=== PATIENT | female | born 1945 | race Hispanic/Latino ===

== ENCOUNTER 2024-12-13 16:54 | Emergency (ER) | payer MEDICARE, OTHER ==
[~2024-12-13] VITALS: Ht 152.4 cm; Wt 59.4 kg
[~2024-12-13 16:54] MED LIST: FOLI0.8T22 PO
--- NOTE | 2024-12-13 17:05 | ERN ---
ED Note History of Present Illness Stated Complaint: ABDOMINAL PAIN THAT RADIATES TO THE BACK Chief Complaint: Abdominal Pain Time Seen by MD: 16:57 Dictation: PATIENT IS AN 79-YEAR-OLD FEMALE COMING IN TODAY WITH COMPLAINTS OF ACUTE ONSET OF EPIGASTRIC SUBSTERNAL CHEST PAIN WITH PAIN THAT RADIATES TO HER UPPER BACK ONSET THIS MORNING AT 10:00. SHE HAS HAD NAUSEA VOMITING SINCE. SHE DENIES JAW PAIN ARM PAIN NO NECK PAIN. SHE DENIES ANY PAST MEDICAL HISTORY OTHER THAN GASTRITIS. SHE STATES SHE HAS BEEN BELCHING SINCE THE ONSET OF THE SYMPTOMS. Allergies: Coded Allergies: Penicillins (Verified Allergy, Unknown, 06/03/18) Home Meds Reported Medications Folic Acid/Vitamin B Comp W-C (Chitra-Jarred Tablet) 0.8 Mg Tablet, 1 TAB PO DAILY 08/21/22 Past Medical History Past Medical History: Arthritis, Hypertension, UTI, Other Additional Past Medical Hx: BLADDER ISSUES, KIDNEY DISEASE Surgical History: None Social History: Smokers, Lives with family History: Not Applicable RN Note Reviewed/Agreed w/PFSH: Yes Review of System Dictation CONSTITUTIONAL: NEGATIVE EXCEPT FOR HPI HEAD/FACE: NEGATIVE EXCEPT FOR HPI EENT: NEGATIVE EXCEPT FOR HPI RESPIRATORY: NEGATIVE EXCEPT FOR HPI GASTROINTESTINAL/ABDOMINAL: NEGATIVE EXCEPT FOR HPI EPIGASTRIC PAIN THAT RADIATES TO THORACIC BACK WITH NAUSEA VOMITING GENITOURINARY: NEGATIVE EXCEPT FOR HPI MUSCULOSKELETAL: NEGATIVE EXCEPT FOR HPI INTEGUMENTARY: NEGATIVE EXCEPT FOR HPI NEUROLOGICAL/PSYCH: NEGATIVE EXCEPT FOR HPI HEMATOLOGIC/LYMPHATIC: NEGATIVE EXCEPT FOR HPI ALL SYSTEMS NEGATIVE, EXCEPT NOTED ABOVE. 13 POINT REVIEW OF SYSTEMS ASSESSED AND ALL NEGATIVE EXCEPT FOR ABOVE. Initial Vital Sign VS Vital Signs Date Time Temp Pulse Resp B/P (MAP) Pulse Ox O2 Delivery O2 Flow Rate FiO2 12/13/24 16:56 98.8 60 18 136/116 97 Room Air 12/13/24 18:00 0 21 Physical Exam Dictation VITAL SIGNS REVIEWED GENERAL APPEARANCE: ALERT, ORIENTED X 3, MODERATE ACUTE DISTRESS, WELL DEVELOPED, NOURISHED. HEAD AND FACE: NON-TRAUMATIC. EYES: PERRL, PINK CONJUNCTIVAS, EYELID NO TRAUMA, ANTERIOR CHAMBER WITH ARCUS SENILIS. EARS: PINNAS INTACT AND NO SIGNS OF TRAUMA OR ERYTHEMA EAR CANALS CLEAR AND NO DISCHARGE TM NO ERYTHEMA NOSE: NO DISCHARGE, NO BLEEDING. OROPHARYNX: MOUTH NORMAL, TONGUE PINK, PHARYNX CLEAR,NO ERYTHEMA, TONSILS NO EXUDATES, NO ABSCESSES NOTED, MUCOUS MEMBRANE MOIST NECK: SUPPLE, NON-TENDER, NO THYROMEGALY, NO MASSES, NO JVD, NO BRUITS BREAST:DEFERRED CHEST:NO TENDERNESS, NO CREPITUS, NO PARADOXICAL MOVEMENT, NO RETRACTIONS LUNGS:CLEAR, WELL-VENTILATED, SYMMETRIC, NO RALES, NO WHEEZING, NO RHONCHI, NO STRIDOR, GOOD BREATH SOUNDS BILATERALLY HEART: REGULAR RATE, REGULAR RHYTHM, NO MURMUR, NO GALLOPS VASCULAR: NO PERIPHERAL EDEMA, ABDOMEN: SOFT, POSITIVE BOWEL SOUNDS, NONDISTENDED, NO GUARDING, MODERATE EPIGASTRIC TENDERNESS WITH PALPATION. NEGATIVE PEREYRA'S NEGATIVE MCB URNEY'S POINT PAIN NO CVAT RECTAL: DEFERRED GENITAL: DEFERRED NEUROLOGICAL: NORMAL SPEECH, MOTOR FUNCTION INTACT, SENSORY FUNCTION INTACT MUSCULOSKELETAL: NECK NONTENDER, FULL RANGE OF MOTION, BACK NONTENDER, FULL RANGE OF MOTION, EXTREMITIES: NONTENDER, FULL RANGE OF MOTION SKIN: COLOR PINK, DRY, NO TURGOR, NO RASH, NO LACERATIONS, NO ABRASIONS, NO CONTUSIONS. LYMPHATIC: DEFERRED Results (Laboratory/Radiology) Laboratory/Radiology Laboratory Tests Test 12/13/24 17:16 White Blood Count 7.3 K/uL (4.8-10.8) Red Blood Count 4.38 MIL/uL (4.00-5.50) Hemoglobin 14.0 g/dL (12.0-16.0) Hematocrit 43.7 % (36-48) Mean Corpuscular Volume 99.8 fL (79-99) H Mean Corpuscular Hemoglobin 32.0 pg (27.0-33.0) Mean Corpuscular Hemoglobin Concent 32.0 g/dL (32.0-36.0) Red Cell Distribution Width 14.0 % (11.0-15.5) Platelet Count 250 K/uL (130-400) Mean Platelet Volume 9.5 fL (7.5-10.5) Immature Granulocyte % (Auto) 0.3 % (0-1) Neutrophils (%) (Auto) 85.5 % (40.0-77.0) H Lymphocytes (%) (Auto) 12.0 % (21.0-51.0) L Monocytes (%) (Auto) 1.8 % (3.0-13.0) L Eosinophils (%) (Auto) 0.1 % (0.0-8.0) Basophils (%) (Auto) 0.3 % (0.0-5.0) Neutrophils # (Auto) 6.3 K/uL (1.8-7.7) Lymphocytes # (Auto) 0.9 K/uL (1.0-4.8) L Monocytes # (Auto) 0.1 K/uL (0.1-1.0) Eosinophils # (Auto) 0.01 K/uL (0.00-0.70) Basophils # (Auto) 0.02 K/uL (0.00-0.20) Absolute Immature Granulocyte (auto 0.02 K/uL (0-1) Nucleated Red Blood Cells 0.0 % (0.0-0.19) Sodium Level 136 mmol/L (136-145) Potassium Level 3.9 mmol/L (3.5-5.1) Chloride Level 103 mmol/L (101-111) Carbon Dioxide Level 21 mmol/L (21-32) Blood Urea Nitrogen 33 mg/dL (7-18) H Creatinine 2.0 mg/dL (0.5-1.0) H Glomerular Filtration Rate Calc 25 mL/min (>90) Random Glucose 159 mg/dL (70-105) H Total Calcium 8.8 mg/dL (8.5-10.1) Troponin I High Sensitivity 11 ng/L (4-50) Lipase 23 U/L (16-77) Labs Reviewed?: Yes EKG: (+) NSR EKG Comment: EKG SINUS BRADYCARDIA/HEART RATE 59/AXIS NORMAL/NO ECTOPY ED Course ED Course Orders Procedure Category Date Status Time Cbc With Differential LAB 12/13/24 Complete 17:00 Troponin I High LAB 12/13/24 Complete Sensitivity 17:00 Urinalysis Profile LAB 12/13/24 Logged 17:00 12 Lead Ekg Tracing- EKG 12/13/24 Logged Technical 17:00 0.9%Nacl 1000ml (Ns PHA 12/13/24 Complete 1000ml) 17:00 Ondansetron 4mg Inj PHA 12/13/24 Complete (Zofran 4mg Inj) 17:00 Famotidine 20mg Vial PHA 12/13/24 Complete (Pepcid 20mg Vial) 17:00 Lipase LAB 12/13/24 Complete 17:00 Basic Metabolic Panel LAB 12/13/24 Complete 17:00 Morphine 4mg Syg PHA 12/13/24 Complete (Morphine 4mg Syg) 17:00 Lidocaine Hcl 2% PHA 12/13/24 Complete Viscous (Lidocaine Hcl 19:00 Mag/Alum/Simeth 30ml PHA 12/13/24 Complete (Maalox Plus 30ml) 19:00 Dicyclomine Hcl PHA 12/13/24 Complete (Bentyl 10mg/5ml 19:00 Hydralazine 20mg Inj PHA 12/13/24 Complete (Apresoline 20mg In 19:00 Current Medications Medications (Trade) Dose Ordered Sig/Braden Route PRN Reason Start Time Stop Time Status Last Admin Dose Admin Al Hydroxide/Mg Hydroxide (MAALox PLUS 30ML) 30 ml ONCE ONCE PO 12/13/24 19:00 12/13/24 19:01 DC 12/13/24 18:59 Dicyclomine HCl (Bentyl 10mg/5ml Syrup) 10 mg ONCE ONCE PO 12/13/24 19:00 12/13/24 19:01 DC 12/13/24 18:59 Famotidine (Pepcid 20mg Vial) 20 mg ONCE ONCE IV 12/13/24 17:00 12/13/24 17:10 DC 12/13/24 18:36 Hydralazine HCl (APRESOLine 20MG INJ) 10 mg ONCE ONCE IV 12/13/24 19:00 12/13/24 19:01 DC 12/13/24 18:59 Lidocaine HCl (Lidocaine HCl 2% Viscous) 10 ml ONCE ONCE PO 12/13/24 19:00 12/13/24 19:01 DC 12/13/24 18:59 Morphine Sulfate (morPHINE 4MG SYG) 2 mg ONCE ONCE IVP 12/13/24 17:00 12/13/24 17:10 DC 12/13/24 18:36 Ondansetron HCl (zoFRAN 4MG INJ) 4 mg ONCE ONCE IVP 12/13/24 17:00 12/13/24 17:10 DC 12/13/24 18:36 Sodium Chloride 1,000 ml @ 0 mls/hr ONCE ONCE IV 12/13/24 17:00 12/13/24 17:10 DC 12/13/24 18:36 Vital Signs Date Time Temp Pulse Resp B/P (MAP) Pulse Ox O2 Delivery O2 Flow Rate FiO2 12/13/24 19:31 98.8 65 16 129/59 98 Room Air* 0 21 12/13/24 18:59 60 187/83 12/13/24 18:00 98.8 60 16 197/80 95 Room Air* 0 21 12/13/24 16:56 98.8 60 18 136/116 97 Room Air 1935/patient states pain is now resolved after GI cocktail. Additionally she was hypertensive with a Blood pressure 187/83. She had not taken her medications this morning. She was given hydralazine 10 mg IV push repeat blood pressure 129/59 Medical Decision Making MDM MDM: Differential diagnosis: ACS/AMI/electrolyte imbalance/dehydration/GERD/ gastritis/uncontrolled hypertension Rationale: Tests considered and ordered secondary to shared decision making include: EKG/labs Previous outside records reviewed: Old ER visits. Risk of complication and/or morbidity or mortality of patient management: None Medications-Per medication reconciliation Need for hospitalization: Patient does not meet criteria for hospitalization. No Need for emergency major/minor surgery: No There are no social concerns with this patient. Prescription drug management Carafate/omeprazole Prescriptions will include symptomatic care Patient's prior external medical records from other ER visits were reviewed by me as indicated. Prior testing and results from previous visits were reviewed. Prior tests were taken into account with medical decision making and resource utilization, independent historian/historians were used to obtain complete medical history. I independently interpreted the test that were performed, results were reviewed by me and considered findings on radiology if ordered. Medical management and examination interpretation discussions were had by me with other qualified healthcare professionals as indicated for the patient's care. DX & DISP Disposition: Discharge Departure Impression: Primary Impression: Acute gastritis Additional Impressions: Stage 4 chronic kidney disease, Diabetes mellitus with hyperglycemia, Accelerated hypertension Condition: Stable Scripts Sucralfate (Carafate) 1 Gram Tablet 1 GM PO ACHS for 10 Days, #40 TAB Prov: AMADA GARCIA FIRER KILN 12/13/24 Omeprazole (Omeprazole) 40 Mg Capsule. 1 CAP PO DAILY for 30 Days, #30 CAP 0 Refills Prov: AMADA GARCIA FIRER KILN 12/13/24 Additional Instructions: Follow-up with primary care provider in 1 to 2 days. Take medications as directed here in the emergency room. Okay to continue home medications unless otherwise discussed during your visit in the emergency room today. Return to your nearest emergency room if symptoms worsen or if there is no improvement. Call 911 if you need immediate assistance. Take Tylenol or Motrin [id number] as needed and if no contraindications are present. Increase oral hydration. A wound culture or urine culture was ordered here in the emergency room department please follow-up with primary care provider and advise them to get repeat ports from our facility. If you had any Cameron wrap/splints that were applied here, please do not remove them until you see your primary care or specialty. Follow a bland diet with water for fluids only. Avoid spicy foods, no tomato juice, no citrus fruit juice, no alcohol, no tobacco, no busy drinks or sodas. No ice tea until cleared by your doctor in one or two days. Continue your high blood pressure medications at home from your doctor. Referrals: VITA ROSSI (PCP) Time of Disposition: 19:44 I have reviewed the case, and I agree with, Diagnosis and Plan AMADA GARCIA NP Dec 13, 2024 17:04
[2024-12-13 17:23] LABS: IMMATURE GRANULOCYTE ABSOLUTE 0.02 K/uL (0-1); NUCLEATED RED BLOOD CELLS 0.0 % (0.0-0.19); PLATELET COUNT (AUTO) 250 K/uL (130-400); RED BLOOD CELL COUNT(AUTO) 4.38 MIL/uL (4.00-5.50); RED CELL DISTRIBUTION WIDTH 14.0 % (11.0-15.5); WHITE BLOOD COUNT (AUTO) 7.3 K/uL (4.8-10.8)
[2024-12-13 17:34] LABS: CREATININE 2.0 mg/dL (0.5-1.0); GLOMERULAR FILTR. RATE CALC 25.0 mL/min (>90); GLUCOSE,RANDOM 159.0 mg/dL (70-105); SODIUM SERUM 136.0 mmol/L (136-145); UREA NITROGEN, BLOOD 33.0 mg/dL (7-18)
--- NOTE | 2024-12-13 18:16 | NUR ---
PATIENT CARE ASSUMED AT THIS TIME.
[2024-12-13] MEDS: FAMOTIDINE 20MG VIAL IV ONE (18:36)
[2024-12-13] MEDS: 0.9%NACL 1000ML 1,000 ML IV ONE (18:36)
[2024-12-13] MEDS: MAG/ALUM/SIMETH 30 ML UDCUP PO ONE (18:59)
[2024-12-13] MEDS: LIDOCAINE HCL 2% VISCOUS 15 ML UDCUP PO ONE (18:59)
[2024-12-13] MEDS: DICYCLOMINE HCL 10 MG/5 ML ML PO ONE (18:59)
[2024-12-13 19:31] VITALS: BP 129/59; PULSE 65; RESP 16; TEMP 98.8; O2SAT 98
[2024-12-13] MEDS ORDERED: SUCR1TAB28 PO (19:45)
[2024-12-13] MEDS ORDERED: OMEP40CA21 PO (19:45)
--- NOTE | 2024-12-13 23:35 | EKG ---
[facility] Test Date: 2024-12-13 Test Time: 16:59:43 Pat Name: JACQUELIN JEWELL Department: [facility] Room: Gender: F Grades 1 Through 5 Teacher: [id number] : 1945 Requested By: AMADA GARCIA Order Number: [id number] Reading MD: Joel Whyte Measurements Intervals [place] Rate: 59 P: 63 [place]: 199 QRS: 24 QRSD: 111 T: 44 QT: 483 QTc: 479 Interpretive Statements Sinus rhythm Low voltage, precordial leads Compared to ECG 08/21/2022 08:27:06 Atrial premature complex(es) no longer present Electronically Signed On 12-14-2024 21:30:21 CDT by Joel Whyte Please click the below link to view image of tracing.
== END 2024-12-13 20:02 | disposition home or self-care (01) ==
LOC: EDH 16:54
DX: K29.00 Acute gastritis without bleeding (principal); I12.9 Hypertensive chronic kidney disease with stage 1 through stage 4 chronic kidney disease, or unspecified chronic kidney disease; E11.22 Type 2 diabetes mellitus with diabetic chronic kidney disease; N18.4 Chronic kidney disease, stage 4 (severe); E11.65 Type 2 diabetes mellitus with hyperglycemia; M19.90 Unspecified osteoarthritis, unspecified site; F17.200 Nicotine dependence, unspecified, uncomplicated; Z88.0 Allergy status to penicillin
CPT/HCPCS: 99284; 96374; 96375; 96361; 84484; 80048; 83690; 85025; 36415; 96376; 93005; J1308; J7030; J0360; J2405 ×2; J2270